=== PATIENT | female | born 1990 | race Caucasian/White ===

== ENCOUNTER 2021-06-20 15:18 | Emergency (ER) | payer OTHER ==
[~2021-06-20] VITALS: Ht 152.4 cm; Wt 67.1 kg
[2021-06-20 15:41] VITALS: BP 119/87
[2021-06-20] MEDS ORDERED: ALUMINUM HYD/MAG/SIMETHICONE 30 ML, DICYCLOMINE HCL LIQUID 20 MG, LIDOCAINE VISCOUS 2% ... PO ONE ×3 (16:10)
[2021-06-20] MEDS ORDERED: ALUMINUM HYD/MAG/SIMETHICONE 30 ML UDC ONE ×2 (16:19→16:21)
[2021-06-20] MEDS ORDERED: DICYCLOMINE HCL LIQUID 10 MG/5 ML UDC ONE ×2 (16:19→16:21)
[2021-06-20] MEDS ORDERED: ONDA-188 SL (16:20)
[2021-06-20] MEDS ORDERED: PROM118S5 PO (16:20)
[2021-06-20] MEDS ORDERED: ACET-10509 PO (16:20)
[2021-06-20 17:01] VITALS: BP 119/87
--- NOTE | 2021-06-20 17:01 | NUR ---
Patient discharged with v/s stable. Written and verbal after care instructions given and explained. Patient alert, oriented and verbalized understanding of instructions. Ambulatory with steady gait. All questions addressed prior to discharge. ID band removed. Patient advised to follow up with PMD. Rx of TYLENOL EXTRA STRENGTH, ZOFRAN, PROMETHAZINE given. Patient educated on indication of medication including possible reaction and side effects. Opportunity to ask questions provided and answered.
== END 2021-06-20 17:01 | disposition home or self-care (01) ==
LOC: EDBD 15:18 → MED 15:18
DX: B34.9 Viral infection, unspecified (principal); Z79.899 Other long term (current) drug therapy
CPT/HCPCS: 99283